=== PATIENT | female | born 1995 | race Caucasian/White ===

== ENCOUNTER 2018-04-03 09:01 | Emergency (ER) | payer OTHER ==
[~2018-04-03] VITALS: Ht 175.3 cm; Wt 104.3 kg
[2018-04-03 09:13] VITALS: BP_SYST 140
[2018-04-03 09:34] VITALS: BP_SYST 140
== END 2018-04-03 09:34 | disposition home or self-care (01) ==
LOC: SED 09:01
DX: O26.893 Other specified pregnancy related conditions, third trimester (principal); L03.115 Cellulitis of right lower limb; Z3A.28 28 weeks gestation of pregnancy
CPT/HCPCS: 99283

== ENCOUNTER 2018-06-11 10:40 | Observation (INO) | payer OTHER ==
[~2018-06-11] VITALS: Ht 175.3 cm; Wt 112.0 kg
== END 2018-06-11 14:10 | disposition home or self-care (01) ==
LOC: SPU 10:40
PROVIDERS: ADMIT Obstetrics & Gynecology; ATTEND Obstetrics & Gynecology
DX: O62.9 Abnormality of forces of labor, unspecified (principal); Z3A.38 38 weeks gestation of pregnancy
CPT/HCPCS: 76819; G0378; 59025

== ENCOUNTER 2018-06-14 13:32 | Inpatient (IN) | payer OTHER ==
[~2018-06-14] VITALS: Ht 175.3 cm; Wt 111.1 kg
[2018-06-14] MEDS ORDERED: OXYTOCIN/0.9 % SODIUM CHLORIDE 1,000 ML IV SCH (20:48)
[2018-06-14] MEDS ORDERED: LR 500 ML IV ONE (20:48)
[2018-06-14] MEDS ORDERED: DINOPROSTONE 10 MG SUPP VG ONE (21:00)
[2018-06-14] MEDS: LR 1,000 ML IV SCH (21:00)
[2018-06-14] MEDS ORDERED: TERBUTALINE SULFATE 1 MG/ML VIAL SUBCUT ONE (21:00)
[2018-06-14] MEDS ORDERED: NALBUPHINE HCL 10 MG/ML AMP IM PRN (21:00)
[2018-06-14 21:29] LABS: BASOPHILS # (AUTO) 0.1 K/uL (0.0-0.2); BASOPHILS % (AUTO) 0.8 % (0.0-2.0); EOSINOPHILS # (AUTO) 0.2 K/uL (0.0-0.4); EOSINOPHILS % (AUTO) 2.5 % (0.0-4.0); HEMATOCRIT 38.6 % (36-48); LYMPHOCYTES # (AUTO) 2.2 K/uL (1.0-5.5); LYMPHOCYTES % (AUTO) 26.1 % (20.5-51.5); MEAN CORPUSCULAR HEMOGLOBIN 30 pg (27-31); MEAN CORPUSCULAR HGB CONC 34 % (32-36); MEAN CORPUSCULAR VOLUME 88 fL (79.0-98.0); MONOCYTES # (AUTO) 0.6 K/uL (0.0-1.0); MONOCYTES % (AUTO) 6.5 % (1.7-9.3); NEUTROPHILS # (AUTO) 5.5 K/uL (1.8-7.7); NEUTROPHILS % (AUTO) 64.1 % (40.0-70.0); PLATELET COUNT (AUTO) 194 K/uL (130-430); RED BLOOD CELL COUNT(AUTO) 4.36 MIL/uL (4.2-6.2); RED CELL DISTRIBUTION WIDTH 12.3 % (9.0-15.0); WHITE BLOOD COUNT (AUTO) 8.6 K/uL (4.8-10.8)
[2018-06-15] MEDS ORDERED: fentaNYL CITRATE/PF 100 MCG/2 ML AMP ONE (03:03)
[2018-06-15] MEDS ORDERED: ROPIVACAINE 0.2% 100 ML ONE (03:04)
[2018-06-15] MEDS ORDERED: LR 500 ML IV ONE (03:30)
[2018-06-15] MEDS ORDERED: FENT2mCg/mL-ROPIVA0.2%/NS EPID 150 ML EP SCH (03:30)
[2018-06-15] MEDS: LR 1,000 ML IV SCH (03:30)
[2018-06-15] MEDS ORDERED: OXYTOCIN/0.9 % SODIUM CHLORIDE 1,000 ML IV SCH (05:25)
[2018-06-15] MEDS ORDERED: OXYTOCIN/0.9 % SODIUM CHLORIDE 1,000 ML IV ONE (05:25)
[2018-06-15] MEDS ORDERED: METHYLERGONOVINE MALEATE 0.2 MG TABLET PO PRN (05:30)
[2018-06-15] MEDS ORDERED: HYDROCORTISONE 0.5%, 28.35 GM TOPICAL CREAM TP PRN (05:30)
[2018-06-15] MEDS ORDERED: SENNOSIDES/DOCUSATE SODIUM 1 TAB TABLET(SENOKOT-S) PO PRN (05:30)
[2018-06-15] MEDS ORDERED: HYDROcodone/ACETAMIN 5-325 MG TAB (NORCO/ VICODIN) PO PRN (05:30)
[2018-06-15] MEDS ORDERED: ANUSOL 1 EA SUPP.RECT (PREPARATION H) RC PRN (05:30)
[2018-06-15] MEDS ORDERED: DERMOPLAST SPRAY TP PRN (05:30)
[2018-06-15] MEDS ORDERED: LANOLIN 7 GM OINT. TP PRN (05:30)
[2018-06-15] MEDS ORDERED: WITCH HAZEL LEAF 1 MED.PAD MED.PAD TP PRN (05:30)
[2018-06-15] MEDS ORDERED: OXYCODONE/ACETAMINOPHEN 5-325 TABLET PO PRN (05:30)
[2018-06-15] MEDS ORDERED: ONDANSETRON HCL 4 MG/2 ML VIAL IVP PRN (07:45)
[2018-06-15] MEDS: IBUPROFEN 600 MG TABLET PO SCH ×3 (12:24→17:46)
[2018-06-15] MEDS: DOCUSATE SODIUM 100 MG CAPSULE PO PRN (20:24)
[2018-06-16] MEDS: OXYCODONE/ACETAMINOPHEN 5-325 TABLET PO PRN ×2 (01:12→06:07)
[2018-06-16] MEDS: IBUPROFEN 600 MG TABLET PO SCH ×2 (06:00→11:31)
[2018-06-16 06:13] LABS: BASOPHILS # (AUTO) 0.2 K/uL (0.0-0.2); BASOPHILS % (AUTO) 2.8 % (0.0-2.0); EOSINOPHILS # (AUTO) 0.3 K/uL (0.0-0.4); EOSINOPHILS % (AUTO) 3.2 % (0.0-4.0); HEMOGLOBIN 11.9 g/dL (12.0-16.0); LYMPHOCYTES # (AUTO) 2.2 K/uL (1.0-5.5); LYMPHOCYTES % (AUTO) 26.4 % (20.5-51.5); MEAN CORPUSCULAR HEMOGLOBIN 31 pg (27-31); MEAN CORPUSCULAR HGB CONC 34 % (32-36); MEAN CORPUSCULAR VOLUME 90 fL (79.0-98.0); MONOCYTES # (AUTO) 0.7 K/uL (0.0-1.0); MONOCYTES % (AUTO) 8.1 % (1.7-9.3); NEUTROPHILS # (AUTO) 4.9 K/uL (1.8-7.7); NEUTROPHILS % (AUTO) 59.5 % (40.0-70.0); PLATELET COUNT (AUTO) 148 K/uL (130-430); RED CELL DISTRIBUTION WIDTH 12.5 % (9.0-15.0); WHITE BLOOD COUNT (AUTO) 8.3 K/uL (4.8-10.8)
[2018-06-16] MEDS: DOCUSATE SODIUM 100 MG CAPSULE PO PRN (11:31)
== END 2018-06-16 13:40 | disposition home or self-care (01) | DRG 807 ==
LOC: SPU 19:34
PROVIDERS: ADMIT Obstetrics & Gynecology; ATTEND Obstetrics & Gynecology
PROC: 10E0XZZ Delivery of Products of Conception, External Approach (ICD-10-PCS; principal; 2018-06-15)
PROC: 3E0R3BZ Introduction of Anesthetic Agent into Spinal Canal, Percutaneous Approach (ICD-10-PCS; 2018-06-15)
PROC: 00HU33Z Insertion of Infusion Device into Spinal Canal, Percutaneous Approach (ICD-10-PCS; 2018-06-15)
PROC: 3E0P7VZ Introduction of Hormone into Female Reproductive, Via Natural or Artificial Opening (ICD-10-PCS; 2018-06-15)
DX: O69.81X0 Labor and delivery complicated by cord around neck, without compression, not applicable or unspecified (principal); O77.0 Labor and delivery complicated by meconium in amniotic fluid; Z37.0 Single live birth; Z3A.39 39 weeks gestation of pregnancy
CPT/HCPCS: 36415; 81002-TC; 85025; 86592; 86886; 86900; 86901; J2300; J2405; J2590; J2795; J3010; J7120

== ENCOUNTER 2018-11-02 10:18 | Emergency (ER) | payer OTHER ==
[~2018-11-02] VITALS: Ht 175.3 cm; Wt 102.1 kg
[2018-11-02 10:18] VITALS: BP_SYST 108
[2018-11-02 11:11] VITALS: BP_SYST 108
== END 2018-11-02 11:11 | disposition home or self-care (01) ==
LOC: SED 10:18
DX: J02.8 Acute pharyngitis due to other specified organisms (principal); B97.89 Other viral agents as the cause of diseases classified elsewhere
CPT/HCPCS: 99283

== ENCOUNTER 2019-05-28 08:19 | Emergency (ER) | payer OTHER ==
[~2019-05-28] VITALS: Ht 175.3 cm; Wt 106.6 kg
[2019-05-28 08:22] VITALS: BP_SYST 123
[2019-05-28] MEDS ORDERED: DIPH-TET-PERTUS Vaccine 0.5 ML VIAL (ADACEL) I.M. ONE (08:45)
[2019-05-28] MEDS ORDERED: AMOXICILLIN/CLAVULANATE POTASSIUM 875 MG TABLET PO ONE (08:45)
[2019-05-28] MEDS ORDERED: BACITRACIN 1 GM OINT TP ONE (08:45)
[2019-05-28 09:08] VITALS: BP_SYST 123
== END 2019-05-28 09:08 | disposition home or self-care (01) ==
LOC: SED 08:19
DX: S81.832A Puncture wound without foreign body, left lower leg, initial encounter (principal); W54.0XXA Bitten by dog, initial encounter; Y93.89 Activity, other specified; Y92.89 Other specified places as the place of occurrence of the external cause; Y99.8 Other external cause status
CPT/HCPCS: 90715; 99283

== ENCOUNTER 2019-06-06 13:21 | Emergency (ER) | payer OTHER ==
[~2019-06-06] VITALS: Ht 175.3 cm; Wt 102.1 kg
[2019-06-06 13:27] VITALS: BP_SYST 147
--- NOTE | 2019-06-06 13:33 | NUR ---
Patient triaged and placed in waiting room. VSS and patient appears in no acute distress at this time. Accompanied by self, awaiting available bed, and MD notified of need for MSE.
--- NOTE | 2019-06-06 13:37 | NUR ---
Patient to ER bed H1 for evaluation. Side rails up.
--- NOTE | 2019-06-06 13:38 | NUR ---
Pt AAOx4 ambulated into ED c/o increased swelling to wound to L lateral ankle r/t dog bite x 2 weeks ago. Pt placed on augmentin 875mg BID and naproxen 500mg BID PRN. Denies pain at this time. Redness noted to site, no purulent discharge. No other injuries/complaints per pt/noted. Will continue to monitor.
--- NOTE | 2019-06-06 13:45 | NUR ---
Lorena Oro at bedside examining patient.
[2019-06-06] MEDS ORDERED: BACITRACIN 1 GM OINT TP ONE (14:15)
--- NOTE | 2019-06-06 14:15 | NUR ---
Patient given written and verbal discharge instructions and verbalizes understanding. ER MD Oro discussed with patient the results and treatment provided. Patient in stable condition. ID arm band removed. No Rx given. Patient educated on pain management and to follow up with PMD. Pain Scale 0. Opportunity for questions provided and answered. Medication side effect fact sheet provided.
[2019-06-06 14:16] VITALS: BP_SYST 138
== END 2019-06-06 14:15 | disposition home or self-care (01) ==
LOC: SED 13:21
DX: S81.852D Open bite, left lower leg, subsequent encounter (principal); W54.0XXD Bitten by dog, subsequent encounter
CPT/HCPCS: 99282

== ENCOUNTER 2019-06-18 11:42 | Emergency (ER) | payer OTHER ==
[~2019-06-18] VITALS: Ht 175.3 cm; Wt 108.9 kg
[2019-06-18 11:42] VITALS: BP_SYST 94
--- NOTE | 2019-06-18 12:00 | NUR ---
Patient to ER bed 05 to gown for evaluation. Side rails up.
--- NOTE | 2019-06-18 12:03 | NUR ---
Pt AAOx4 ambulated into ED c/o wound to L lateral calf r/t dog bite x 3 weeks ago. Pt has been seen by ED MD and given rx antibiotic with no relief. Open ulcer noted to site. No bleeding/purulent drainage noted.
--- NOTE | 2019-06-18 12:12 | NUR ---
EVITA Gil at bedside examining patient.
[2019-06-18] MEDS ORDERED: CEPHALEXIN 500 MG CAPSULE PO ONE (12:15)
[2019-06-18] MEDS ORDERED: SULFAMETHOXAZOLE/TRIMETHOPR DS 1 TABLET PO ONE (12:15)
--- NOTE | 2019-06-18 12:33 | NUR ---
ASSUMED CARE, MEDICATED ORDERED.
[2019-06-18] MEDS ORDERED: LIDOCAINE/EPI 1% 1:100000 20 ML VIAL INJ ONE (12:56)
--- NOTE | 2019-06-18 12:58 | NUR ---
DR BRAY IN ROOM FOR SUTURING.
[2019-06-18] MEDS ORDERED: BACITRACIN 1 GM OINT TP ONE (13:18)
[2019-06-18 13:43] VITALS: BP_SYST 109
--- NOTE | 2019-06-18 13:44 | NUR ---
Patient given written and verbal discharge instructions and verbalizes understanding. ER MD discussed with patient the results and treatment provided. Patient in stable condition. ID arm band removed. Rx of KEFLEX, BACTRIM given. Patient educated on pain management and to follow up with PMD. Pain Scale 0/10. Opportunity for questions provided and answered. Medication side effect fact sheet provided.
== END 2019-06-18 13:44 | disposition home or self-care (01) ==
LOC: SED 11:42
DX: S91.052A Open bite, left ankle, initial encounter (principal); W54.0XXA Bitten by dog, initial encounter; Y93.89 Activity, other specified; Y92.89 Other specified places as the place of occurrence of the external cause; Y99.8 Other external cause status
CPT/HCPCS: 99283

== ENCOUNTER 2019-07-01 13:22 | Inpatient (IN) | payer OTHER ==
[~2019-07-01] VITALS: Ht 175.3 cm; Wt 109.8 kg
[2019-07-01 13:50] VITALS: BP_SYST 135
[2019-07-01 14:43] VITALS: BP_SYST 121
[2019-07-01] MEDS ORDERED: VANCOMYCIN HCL 1,000 MG in NS 250 ML IV ONE (15:00)
[2019-07-01 15:21] LABS: BASOPHILS % (AUTO) 0.7 % (0.0-2.0); EOSINOPHILS # (AUTO) 0.3 K/uL (0.0-0.4); EOSINOPHILS % (AUTO) 4.3 % (0.0-4.0); HEMATOCRIT 40.3 % (36-48); HEMOGLOBIN 14.3 g/dL (12.0-16.0); LYMPHOCYTES # (AUTO) 2.2 K/uL (1.0-5.5); LYMPHOCYTES % (AUTO) 33.2 % (20.5-51.5); MEAN CORPUSCULAR HEMOGLOBIN 31 pg (27-31); MEAN CORPUSCULAR HGB CONC 35 % (32-36); MEAN CORPUSCULAR VOLUME 87 fL (79.0-98.0); MONOCYTES # (AUTO) 0.6 K/uL (0.0-1.0); MONOCYTES % (AUTO) 9.3 % (1.7-9.3); NEUTROPHILS # (AUTO) 3.5 K/uL (1.8-7.7); NEUTROPHILS % (AUTO) 52.5 % (40.0-70.0); PLATELET COUNT (AUTO) 200 K/uL (130-430); RED BLOOD CELL COUNT(AUTO) 4.62 MIL/uL (4.2-6.2); RED CELL DISTRIBUTION WIDTH 13.2 % (9.0-15.0); WHITE BLOOD COUNT (AUTO) 6.6 K/uL (4.8-10.8)
[2019-07-01 15:38] LABS: CALCIUM 8.9 mg/dL (8.4-11.0); CREATININE 0.87 mg/dL (0.55-1.30); POTASSIUM 3.6 mmol/L (3.5-5.1)
[2019-07-01 15:50] LABS: ALBUMIN 3.8 g/dL (3.4-4.8); TOTAL BILIRUBIN 0.3 mg/dL (0.0-1.0)
[2019-07-01] MEDS ORDERED: ACETAMINOPHEN 325 MG TABLET PO PRN (17:45)
[2019-07-01] MEDS ORDERED: CEFAZOLIN 1 GM IVPB PREMIX 50 ML IV ONE (18:00)
[2019-07-01] MEDS ORDERED: ONDANSETRON HCL 4 MG/2 ML VIAL IVP PRN (18:00)
[2019-07-01] MEDS ORDERED: ACETAMINOPHEN/CODEINE 300 MG-30 MG TABLET PO PRN ×3 (18:00→18:45)
[2019-07-01] MEDS ORDERED: TEMAZEPAM 15 MG CAPSULE PO PRN (18:00)
[2019-07-01] MEDS ORDERED: VANCOMYCIN HCL 1000 MG/VIAL IV ONE (18:05)
[2019-07-01] MEDS ORDERED: DIPHENHYDRAMINE INJ 50 MG/ML VIAL IVP ONE (19:45)
[2019-07-01] MEDS: CLINDAMYCIN 600 mg/50mL D5W 50 ML IV SCH (20:48)
[2019-07-01] MEDS: ENOXAPARIN SODIUM 40 MG/0.4 ML SYRINGE SUBCUT SCH (21:44)
[2019-07-01] MEDS: LACTOBACILLUS RHAMNOSUS GG 1 CAP CAPSULE PO SCH (21:47)
[2019-07-02 01:29] VITALS: BP_SYST 117
[2019-07-02] MEDS: CLINDAMYCIN 600 mg/50mL D5W 50 ML IV SCH ×5 (02:52→20:07)
[2019-07-02] MEDS: CEFAZOLIN 1 GM IVPB PREMIX 50 ML IV SCH ×4 (04:14→20:06)
[2019-07-02 04:16] VITALS: BP_SYST 102
[2019-07-02 08:00] VITALS: BP_SYST 123
[2019-07-02] MEDS: LACTOBACILLUS RHAMNOSUS GG 1 CAP CAPSULE PO SCH ×2 (09:12→20:12)
[2019-07-02 12:39] VITALS: BP_SYST 117
[2019-07-02] MEDS ORDERED: BALSAM PERU/CASTOR OIL 60 GM OINT...G. TP SCH (15:45)
[2019-07-02 16:41] VITALS: BP_SYST 109
[2019-07-02 20:25] VITALS: BP_SYST 122
[2019-07-02] MEDS: ENOXAPARIN SODIUM 40 MG/0.4 ML SYRINGE SUBCUT SCH (21:00)
== END 2019-07-02 21:45 | disposition home or self-care (01) | DRG 603 ==
LOC: SED 13:22 → SMU 16:48
PROVIDERS: ADMIT Internal Medicine; ATTEND Internal Medicine
DX: L03.116 Cellulitis of left lower limb (principal); S81.852A Open bite, left lower leg, initial encounter; W54.0XXA Bitten by dog, initial encounter; Y93.89 Activity, other specified; Y92.89 Other specified places as the place of occurrence of the external cause; Y99.8 Other external cause status
CPT/HCPCS: 36415; 73590-TC; 80053; 82306; 83605; 84703; 85025; 87040-TC; 87070-TC; 99285; J0690; J1200; J1650; J3370; J3490